=== PATIENT | male | born 1975 | race Caucasian/White ===

== ENCOUNTER 2019-09-29 01:35 | Emergency (ER) | payer BC, SELFPAY ==
--- NOTE | ~2019-09-29 | XR_ITS ---
EXAMINATION: XR chest 2V DATE: 09/29/2019 02:37 INDICATION: Left-sided chest pain TECHNIQUE: PA and lateral views of the chest are obtained. COMPARISON: 07/20/2011 FINDINGS: The lungs are free of acute opacities. There is no pleural effusion or pneumothorax. The ca rdiomediastinal silhouette is normal. The visualized bones and soft tissues are unremarkable. IMPRESSION: 1. No acute cardiopulmonary abnormality. Reviewed, dictated and finalized at location A.
[2019-09-29 01:38] VITALS: BP 183/109; PULSE 74; RESP 18; TEMP 36.7; O2SAT 98
--- NOTE | 2019-09-29 01:42 | ECG_ITS ---
Measurements Intervals [place] Rate: 69 P: 50 NE: 168 QRS: 13 QRSD: 114 T: 32 QT: 369 QTc: 396 Interpretive Statements SINUS RHYTHM WITH MARKED SINUS ARRHYTHMIA INTRAVENTRICULAR CONDUCTION DELAY BASELINE ARTIFACT- V1-V3 BORDERLINE ECG Electronically Signed On 09-29-2019 8:55:04 CDT by Harry Mccollum D.O.
--- NOTE | 2019-09-29 02:11 | ED.CHESTPAIN ---
HPI - Chest Pain General Chief Complaint: Chest Pain Stated Complaint: cp Time Seen by Provider: 09/29/19 01:43 Source: patient Mode of arrival: ambulatory Limitations: no limitations History of Present Illness HPI narrative: Patient is a 44-year-old male who presents to the emergency department with complaint of chest pain. Patient reports onset of symptoms 5 days ago. Patient states the pain has been fairly constant but does have some waxing and waning in intensity. He describes it as a squeezing, burning, and sharp pain. Patient states initially he was able to sleep if he laid on his right side and put a pillow between his left arm his chest and squeezed on the pillow. Now patient states that is not helping. Patient also takes Xanax as needed to help him sleep and that did not help tonight either. Patient states he has been drinking a moderate to heavy amount of alcohol over the past month and a half due to [facility] in [facility] for the coronavirus pandemic. Patient states he has not had any alcohol over the past couple of days and normally is not a heavy drinker. Patient has not tried taking any antiacid or [id number] pain medications for his symptoms. MD complaint: chest pain Onset (ago): day(s) (5) Timing of current episode: constant Pain location: left chest Quality: sharp, burning and other (Squeezing) Relieving factors: other (Getting up and walking around, yoga) Exacerbating factors: supine Treatment prior to arrival: none Related Data Allergies Allergy/AdvReac Type Severity Reaction Status Date / Time No Known Allergies Allergy Unverified 10/25/13 03:16 Review of Systems Review of Systems: All systems reviewed & are unremarkable except as noted in HPI and below Constitutional: Constitutional: Denies fever(s) Cardiovascular: Cardiovascular: Reports chest pain Respiratory: Respiratory: Denies cough and Denies dyspnea Gastrointestinal: Gastrointestinal: Denies abdominal pain, Denies diarrhea, Denies nausea and Denies vomiting PMF Past Medical History Medical History (Updated 09/29/19 @ 04:26 by She Aldridge MD) Erectile dysfunction Surgical History Surgical History (Updated 09/29/19 @ 02:17 by She Aldridge MD) History of hernia repair Social History Social History (Updated 09/29/19 @ 02:17 by She Aldridge MD) Smoking status: Former smoker Additional smoking assessment comments: Quit 2017 Alcohol intake: current Gender identity (if verbalized by the patient): Male Exam Const: General: cooperative, no acute distress and alert Nutritional Appearance: well nourished Orientation/consciousness: patient oriented x3 Limitations: no limitations HENMT: Mouth: Yes lip normal and Yes moist mucous membranes Resp: Effort & Inspection: normal respiratory effort Auscultation: clear to auscultation bilaterally Cardio: Rate: regular rate Rhythm: regular rhythm GI: GI Palp: Yes Soft to palpation and No Tenderness to palpation present (GI) Auscultation: normal bowel sounds Skin: General skin exam: normal color Neuro: General: patient oriented x3 Cognition (Neuro): normal cognition Speech: normal speech Extrem: General: normal to inspection, full ROM and no clubbing, cyanosis or edema Psych: Mental Status: mental status grossly normal Affect: normal affect Attitude: cooperative Course Course Emergency Course: Patient feeling greatly improved after GI cocktail. Suspect patient has esophagitis/gastritis from his alcohol binging as of late. No acute abnormalities noted on EKG or imaging in the emergency department. Blood work shows mild elevation of liver enzymes, but is otherwise unremarkable. Repeat blood pressure on reevaluation 138/98. Patient counseled on importance of abstaining from alcohol use given this is likely the cause of his symptomatology and additionally he has liver enzyme elevation. Patient advised importance of following up with his primary ca
[2019-09-29 02:15] LABS: Basophils Percent Auto 0.5 % (0.2-1.2); Eosinophils Absolute Auto 0.1 K/mm3 (0-0.3); Eosinophils Percent Auto 1.4 % (0-4.4); Hematocrit 47.4 % (42.0-52.0); Hemoglobin 16.4 g/dL (14.0-18.0); Immature Granulocyte Absolute 0.05 K/mm3 (0.00-0.031); Immature Granulocyte Percent A 0.6 % (0-0.5); Lymphocytes Absolute Auto 1.37 K/mm3 (0.9-3.2); Lymphocytes Percent Auto 16.4 % (18.3-44.2); Mean Corpuscular HGB Conc 34.6 g/dl (32-36); Mean Corpuscular Hemoglobin 29.5 pg (26-34); Mean Corpuscular Volume 85.4 fl (80-100); Monocytes Percent Auto 12.2 % (2.6-8.5); Neutrophils Absolute Auto 5.7 K/mm3 (1.3-6.7); Neutrophils Percent Auto 68.9 % (45.5-73.1); Platelet Count Result 229 k/mm3 (150-375); Red Blood Count 5.55 M/mm3 (4.6-6.20); Red Cell Distribution Width 12.9 % (11.5-14.5); White Blood Count 8.3 K/mm3 (4.5-10.0)
[2019-09-29 02:27] LABS: Prothrombin Time 12.4 Seconds (11.1-14.7)
[2019-09-29 02:28] LABS: Partial Thromboplastin Time 28.5 SECONDS (22.3-36.8)
[2019-09-29 02:31] LABS: Alanine Aminotransferase 287 U/L (4-50); Albumin Level 4.8 g/dL (3.5-5.1); Alkaline Phosphatase 97 U/L (38-126); Aspartate Amino Transferase 159 U/L (17-59); Bilirubin,Total 1.2 mg/dL (0.2-1.3); Blood Urea Nitrogen 16 mg/dL (9-20); Calcium 9.7 mg/dL (8.4-10.2); Carbon Dioxide 23 mmol/L (22-30); Chloride 101 mmol/L (98-107); Estimated Glomerular Filt Rate > 60; Glucose 112 mg/dL (75-110); Lipase 104 U/L (23-300); Potassium 3.8 mmol/L (3.4-5.0); Sodium 135 mmol/L (137-145)
[2019-09-29 02:40] LABS: D Dimer 0.27 ug/mL (<0.48)
[2019-09-29 02:42] LABS: Troponin I < 0.012 ng/mL (0.000-0.034)
[2019-09-29] MEDS: ASPIRIN 81 MG CHEWABLE TABLET 324 MG PO (02:43)
[2019-09-29 03:07] VITALS: BP 141/113; PULSE 75; RESP 18; O2SAT 99
[2019-09-29 04:52] VITALS: BP 138/98; PULSE 70; RESP 14; O2SAT 98
== END 2019-09-29 04:53 | disposition home or self-care (01) ==
PROVIDERS: Emergency Provider Emergency Medicine; PCP Internal Medicine
DX: R07.89 Other chest pain (principal); R94.5 Abnormal results of liver function studies; Z87.891 Personal history of nicotine dependence
CPT/HCPCS: 36415; 71046; 80048; 80076; 83690; 84484; 85025; 85380; 85610; 85730; 93005; 99284; A9270

== ENCOUNTER 2020-08-08 13:20 | Emergency (ER) | payer BC, SELFPAY ==
[2020-08-08 13:38] VITALS: BP 133/90; PULSE 83; RESP 18; TEMP 36.4; O2SAT 99
--- NOTE | 2020-08-08 13:46 | ED.ABDPAIN ---
HPI - Abdominal Pain General Chief Complaint: Nausea/Vomiting/Diarrhea Stated Complaint: abd pain Time Seen by Provider: 08/08/20 13:40 Source: patient and RN notes reviewed Mode of arrival: ambulatory Limitations: no limitations History of Present Illness HPI narrative: 45 yo male presents to the [facility] with C/O nausea and abdominal pain Left mid to lower quadrant since yesterday. States that he ate out and it started about 1-2 hours after eating. Denies pain. Denies vomiting or diarrhea. Denies fevers. MD elicited complaint: abdominal pain Related Data Home Medications Medication Instructions Recorded Confirmed amlodipine 08/08/20 Allergies Allergy/AdvReac Type Severity Reaction Status Date / Time No Known Allergies Allergy Unverified 10/25/13 03:16 Review of Systems Review of Systems: Narrative: CONSTITUTIONAL: Denies fever, chills, or sweats. EYES: Denies visual changes, redness, or discharge. CARDIOVASCULAR: Denies chest pain, palpitations, or edema. RESPIRATORY: Denies cough or dyspnea. GASTROINTESTINAL: Denies abdominal pain, vomiting, or diarrhea. Reports left lower abdominal cramping and nausea MUSCULOSKELETAL: Denies back pain, joint pain, or myalgia. NEUROLOGIC: Denies headache, numbness, or weakness. PSYCHIATRIC: Denies anxiety or depression. All other systems reviewed are negative, except as documented in HPI. PMFSH Past Medical History Medical History Erectile dysfunction Surgical History Surgical History History of hernia repair Social History Social History Smoking status: Former smoker Additional smoking assessment comments: Quit 2017 Alcohol intake: current Gender identity (if verbalized by the patient): Male Comments At the time of my signature, I reviewed and agree with the nursing past medical, surgical, social, and family history. There is no relevant family history pertinent to the patient complaint. Exam Narrative: Exam Narrative: GENERAL: This is a well-nourished, well-developed patient, in no apparent distress. HEAD: normocephalic, atraumatic. EYES: PERRL. Sclera clear/white. Vision is grossly intact. EARS: External ears normal. NECK: Neck supple, non-tender without lymphadenopathy, masses or thyromegaly. CARDIOVASCULAR: Regular rate and rhythm without murmurs, gallops, or rubs. RESPIRATORY: Clear to auscultation. Breath sounds equal bilaterally. No wheezes, rales, or rhonchi. GASTROINTESTINAL: Abdomen soft, non-tender on palpation, nondistended. Bowel sounds are hyperactive. No hepato-splenomegaly, or palpable masses. No guarding. SKIN: warm, intact with no suspicious lesions or rash, good texture and turgor. NEURO: awake, alert, and oriented to person, place and time. There were no obvious focal neurologic abnormalities. EXTREMITIES: No clubbing, cyanosis, or edema. No joint tenderness. BACK: Nontender without deformity. Course Vital Signs Vital signs: Vital Signs Temperature 97.6 F 08/08/20 13:38 Pulse Rate 83 08/08/20 13:38 Respiratory Rate 18 08/08/20 13:38 Blood Pressure 133/90 08/08/20 13:38 Pulse Oximetry 99 08/08/20 13:38 Temperature 97.6 F 08/08/20 13:38 Pulse Rate 83 08/08/20 13:38 Respiratory Rate 18 08/08/20 13:38 Blood Pressure 133/90 08/08/20 13:38 Pulse Oximetry 99 08/08/20 13:38 Reviewed, within defined limits MDM - Abdominal Pain MDM Narrative Medical decision making narrative: Discharge instructions reviewed with patient, as well as provided in writing per nursing staff. The instructions also include specific and strict return/GO TO THE ER as well as f/u information. All questions have been answered, and the patient deny any further questions with discharge and discharge plan. Differential Diagnosis Differential diagnosis: Likely abdominal pain, const
== END 2020-08-08 13:58 | disposition home or self-care (01) ==
PROVIDERS: Emergency Provider Nurse Practitioner; PCP Internal Medicine
DX: R11.0 Nausea (principal); R10.32 Left lower quadrant pain; Z87.891 Personal history of nicotine dependence
CPT/HCPCS: 99213; G0463